=== PATIENT | female | born 1990 | race Caucasian/White ===

== ENCOUNTER 2018-11-14 09:52 | Day surgery (SDC) | payer OTHER ==
[~2018-11-14] VITALS: Ht 154.9 cm; Wt 54.6 kg
[2018-11-14] MEDS ORDERED: UROMAG140 MG PO (10:14)
[2018-11-14] MEDS ORDERED: CARAFATE 1GM1 G PO (10:26)
[2018-11-14] MEDS ORDERED: PROTONIX 40MG T40 MG PO (10:27)
[2018-11-14 10:44] VITALS: BP 102/72; PULSE 65; TEMP 98.4
[2018-11-14 12:55] VITALS: BP 116/61; PULSE 58
--- NOTE | 2018-11-14 12:55 | NUR ---
Patient returns to [facility] ambulatory and arouses to verbal stimuli. Transfers from cart to recliner with two person assist. IV fluids infusing and site free of redness. Allowed to rest. Call light in reach.
[2018-11-14 13:10] VITALS: BP 102/39; PULSE 64
--- NOTE | 2018-11-14 13:10 | NUR ---
Room air sats 99%. More awake and taking applejuice and eating muffin. Denies pain or nausea.
[2018-11-14 13:25] VITALS: BP 107/58; PULSE 61
--- NOTE | 2018-11-14 13:25 | NUR ---
IV discontinued and allowed to dress self. Continues to deny pain or nausea.
--- NOTE | 2018-11-14 13:50 | NUR ---
Patient is dressed sitting in chair awaiting to talk with Dr. Cm.
--- NOTE | 2018-11-14 14:00 | NUR ---
Dr. Cm in to talk with the patient and all questions answered.
--- NOTE | 2018-11-14 14:07 | NUR ---
Dismissal instructions given and voices understanding of these. Patient dismissed to home driven by friend and taken to the front door per wheelchair and assisted into vehicle with instructions in hand.
== END 2018-11-14 14:07 | disposition home or self-care (01) ==
LOC: SDCO 09:52
DX: K92.1 Melena (principal); K44.9 Diaphragmatic hernia without obstruction or gangrene; K63.9 Disease of intestine, unspecified; K59.00 Constipation, unspecified
CPT/HCPCS: J1200; J2250; J2405; J3010; J7030

== ENCOUNTER → 2019-01-22 | Outpatient (CLI) | payer OTHER ==
[~2019-01-22] MED LIST: CARAFATE 1GM1 G PO; PROTONIX 40MG T40 MG PO; UROMAG140 MG PO
== END ==
LOC: COL.RAD 07:59
DX: R19.5 Other fecal abnormalities (principal); R10.9 Unspecified abdominal pain; R25.2 Cramp and spasm
CPT/HCPCS: A9537; J2805